=== PATIENT | female | born 1990 | race Caucasian/White ===

== ENCOUNTER 2016-12-27 23:58 | Emergency (ER) | payer MEDICAID ==
[~2016-12-27] VITALS: Ht 160 cm; Wt 56.5 kg
[~2016-12-27 23:58] MED LIST: ACET1TAB40 PO; IBUP-1542 PO; NITR-58 PO
[2016-12-27 23:59] VITALS: Ht 160 cm; Wt 56.5 kg
[2016-12-28] MEDS ORDERED: SOD CHLORIDE 0.9% 1,000 ML IV STA (00:45)
[2016-12-28] MEDS ORDERED: ACETAMINOPHEN 325 MG TAB PO STA (00:45)
[2016-12-28 01:45] LABS: ADD SCAN DIFF NO
--- NOTE | 2016-12-28 01:55 | RADRPT ---
PROCEDURE: US OB. CLINICAL INDICATION: Patency of vaginal hemorrhage. TECHNIQUE: Multiple sonographic images of the pelvis were obtained. The images were reviewed on a PACS workstation. COMPARISON: No prior studies are available for comparison. FINDINGS: There is a single viable intrauterine gestation. Cardiac activity is present with 144 beats per min brandon. There is a cephalic presentation. Measurements were made in order to determine age. The results are as follows: BPD =4.21 cm HC =16.34 cm AC =13.64 cm FL =2.95 cm. Estimated gestational age of approximately 19 weeks and 0 days.. The estimated date of delivery is 05/24/2017. The EFW = 272 g. . The placenta is posterior, grade 0. There is no evidence for an abruption or placenta previa. There is a normal amount of amniotic fluid with an MYESHA = 6.1. There are no adnexal masses.. IMPRESSION: Single live intrauterine gestation of approximately 19 weeks and 0 days. The estimated date of deli very is 05/24/2017. RPTAT: UU Physician Tangela Date Time Electronically viewed and signed by Physician Tangela on 12/28/2016 01:55 RS/
[2016-12-28] MEDS ORDERED: ACET-141 PO (01:56)
[2016-12-28] MEDS ORDERED: morphine 2 MG INJ IV ONE (02:00)
[2016-12-28 02:07] LABS: ALBUMIN 3.6 g/dl (3.3-4.9); POTASSIUM 3.5 mmol/L (3.5-5.1)
[2016-12-28 02:09] LABS: BILIRUBIN,INDIRECT 0.1 mg/dl (0-1.1); BILIRUBIN,TOTAL 0.1 mg/dl (0.2-1.3); CREATININE 0.43 mg/dl (0.44-1.00)
[2016-12-28 02:10] LABS: ALBUMIN/GLOBULIN RATIO 1.2; CALCIUM 8.3 mg/dl (8.4-10.2); TOTAL PROTEIN 6.6 g/dl (6.1-8.1)
[2016-12-28 02:14] LABS: BASOPHIL # 0.1 10^3/ul (0.0-0.1); BASOPHILS % 0.8 % (0.0-2.0); EOSINOPHILS # 0.1 10^3/ul (0.0-0.5); EOSINOPHILS % 0.8 % (0.0-7.0); HEMATOCRIT 29.2 % (37.0-47.0); HEMOGLOBIN 10.2 g/dl (12.0-16.0); LYMPHOCYTES # 2.7 10^3/ul (0.8-2.9); LYMPHOCYTES % 25.8 % (15.0-51.0); MEAN CORPUSCULAR HEMOGLOBIN 32.8 pg (29.0-33.0); MEAN CORPUSCULAR HGB CONC 34.9 g/dl (32.0-37.0); MEAN CORPUSCULAR VOLUME 93.9 fl (82.0-101.0); MEAN PLATELET VOLUME 11.5 fl (7.4-10.4); MONOCYTE # 0.8 10^3/ul (0.3-0.9); NEUTROPHIL # 6.6 10^3/ul (1.6-7.5); NEUTROPHILS % 63.4 % (39.0-77.0); PLATELET COUNT 279 10^3/UL (140-415); RED BLOOD COUNT 3.11 10^6/ul (4.20-5.40); RED CELL DISTRIBUTION WIDTH 12.7 % (11.5-14.5); WHITE BLOOD COUNT 10.4 10^3/ul (4.8-10.8)
[2016-12-28 02:45] LABS: ADD UMIC YES; URINE BILIRUBIN (Dip) NEGATIVE (NEGATIVE); URINE BLOOD (Dip) NEGATIVE (NEGATIVE); URINE COLOR LT. YELLOW (YELLOW); URINE GLUCOSE (Dip) NEGATIVE (NEGATIVE); URINE KETONES (Dip) NEGATIVE (NEGATIVE); URINE LEUKOCYTE ESTERASE (Dip) TRACE (NEGATIVE); URINE NITRITE (Dip) NEGATIVE (NEGATIVE); URINE TOTAL PROTEIN (Dip) NEGATIVE (NEGATIVE); URINE UROBILINOGEN (Dip) 0.2 E.U./dL (0.1-1.0)
[2016-12-28 02:46] VITALS: BP 126/81; PULSE 73; RESP 18
--- NOTE | 2016-12-28 02:47 | ERD ---
ER Documentation Chief Complaint Date/Time DATE: 12/28/16 TIME: 02:43 Chief Complaint 18 wks , abdominal pain, denies bleeding HPI 26-year-old woman complaining of intermittent pelvic cramping occurring every 15 minutes for most of the day today, patient is 18-19 weeks by dates and previously normal ultrasound. Patient denies vaginal bleeding or discharge , no dysuria, no chest pain or shortness of breath, no dizziness or loss of consciousness, no anorexia, no vomiting or diarrhea. Patient does have obstetrics follow-up scheduled. ROS All systems reviewed and are negative except as per history of present illness. Medications Home Meds Active Scripts Acetaminophen* (Acetaminophen*) 500 MG Extra Strength Tablet, 500 MG PO QID Y for PAIN AND/OR INFLAMMATION, #30 TAB Prov:MARCUS BECKMAN MD 12/28/16 Acetaminophen-Codeine* (Acetaminophen-Cod #3*) 300-30 Mg Tab, 1 TAB PO Q4H Y for PAIN, #14 TAB Prov:JESI POLLARD MD 01/25/16 Ibuprofen* (Motrin*) 600 Mg Tab, 600 MG PO Q6, #20 TAB Prov:JESI POLLARD MD 01/25/16 Nitrofurantoin Monohyd Macrocr* (Macrobid*) 100 Mg Capsr, 100 MG PO twice a day for 5 Days, CAP Prov:MICKY SHARP NP 01/10/16 Allergies Allergies: Coded Allergies: No Known Drug Allergies (Verified Allergy, Unknown, 01/09/16) PMhx/Soc None History of Surgery: Yes (OVARIAN CYST REMOVED ) Anesthesia Reaction: No Hx Neurological Disorder: No Hx Respiratory Disorders: No Hx Cardiac Disorders: No Hx Psychiatric Problems: No Hx Miscellaneous Medical Probl: Yes (DEPRESSION, SCIATICA ) Hx Alcohol Use: No Hx Substance Use: No Hx Tobacco Use: No Smoking Status: Never smoker FmHx Family History: No diabetes Physical Exam Vitals Vital Signs Date Time Temp Pulse Resp B/P Pulse Ox O2 Delivery O2 Flow Rate FiO2 12/27/16 23:59 98.9 105 20 123/59 98 Physical Exam GENERAL: Well-developed, well-nourished, well-hydrated, in no apparent distress , looks nontoxic in appearance HEENT: Moist mucous membranes, pink conjunctiva, no cervical spine tenderness or step-off deformities, no goiter, no jaundice or icterus, extraocular movements intact without pain. No submandibular induration, and no pharyngeal erythema NEURO: Alert and oriented 3, cranial nerves II through XII intact bilaterally, pupils equal round reactive to light, no focal deficits or facial asymmetry, sensation intact distally Strength 5/5 in upper and lower extremities bilaterally CARDIAC: Regular rate and rhythm, no murmurs rubs or gallops LUNGS: Clear bilaterally no wheezing crackles or stridor ABDOMEN: Gravid abdomen, soft nontender, no guarding, no rigidity, no rebound, no psoas sign no obturator sign. Normoactive bowel sounds SKIN: Warm and dry to touch, no abrasions, contusions, or hematomas, no lacerations, no ecchymosis, no target lesions, and without ulcers EXTREMITIES: No clubbing cyanosis or edema, calves are bilaterally symmetrical, no Homans sign, no popliteal cord sign. Distal pulses equal and bilateral PSYCH: Normal affect without agitation or irritability Result Diagram: 12/28/16 0140 12/28/16 0140 Results 24 hrs Laboratory Tests Test 12/28/16 01:40 White Blood Count 10.410^3/ul Red Blood Count 3.1110^6/ul Hemoglobin 10.2g/dl Hematocrit 29.2% Mean Corpuscular Volume 93.9fl Mean Corpuscular Hemoglobin 32.8pg Mean Corpuscular Hemoglobin Concent 34.9g/dl Red Cell Distribution Width 12.7% Platelet Count 29115^3/UL Mean Platelet Volume 11.5fl Neutrophils % 63.4% Lymphocytes % 25.8% Monocytes % 8.0% Eosinophils % 0.8% Basophils % 0.8% Nucleated Red Blood Cells % 0.0/100WBC Neutrophils # 6.610^3/ul Lymphocytes # 2.710^3/ul Monocytes # 0.810^3/ul Eosinophils # 0.110^3/ul Basophils # 0.110^3/ul Nucleated Red Blood Cells # 0.010^3/ul Sodium Level 133mmol/L Potassium Level 3.5mmol/L Chloride Level 105mmol/L Carbon Dioxide Level 23mmol/L Anion Gap 9 Blood Urea Nitrogen 7mg/dl Creatinine 0.43mg/dl Glucose Level 85mg/dl Calcium Level 8.3mg/dl Total Bilirubin 0.1mg/dl Direct Bilirubin 0.00mg/dl Indirect Bilirubin 0.1mg/dl Aspartate Amino Transf (AST/SGOT) 13IU/L Alanine Aminotransferase (ALT/SGPT) 15IU/L Alkaline Phosphatase 67IU/L Total Protein 6.6g/dl Albumin 3.6g/dl Globulin 3.00g/dl Albumin/Globulin Ratio 1.20 Current Medications Medications (Trade) Dose Ordered Sig/Mary Route PRN Reason Start Time Stop Time Status Last Admin Dose Admin Sodium Chloride (NS) 1,000 ml @ 1,000 mls/hr Q1H STAT IV 12/28/16 00:45 12/28/16 01:44 DC 12/28/16 01:12 Acetaminophen (Tylenol Tab) 650 mg ONCE STAT PO 12/28/16 00:45 12/28/16 00:46 DC 12/28/16 01:12 Morphine Sulfate (morphine) 2 mg ONCE ONCE IV 12/28/16 02:00 12/28/16 02:01 DC 12/28/16 02:35 Procedures/MDM IV line was established patient was placed on classroom monitor rhythm strip revealed a sinus tachycardia at 110 bpm with upright P and T waves. Patient was afebrile. Urine analysis is pending I will follow-up, if positive I will treat her with oral antibiotics. I administered 1 L normal saline intravenously and acetaminophen 650 mg p.o. with good effect. For later complaints of cramping I administered morphine 2 mg intramuscular injection with good effect. Pelvic obstetric ultrasound revealed a 19 week intrauterine with good heart tones. Please refer to radiologist dictation for full report. CBC and electrolytes were normal, liver function tests normal. Beta-hCG appropriately elevated. Differential diagnoses considered, included but not limited to cervicitis, ectopic , premature rupture of membranes, sepsis, stroke, meningitis, encephalitis, pneumonia, appendicitis, cholecystitis, bowel obstruction, pyelonephritis, nephrolithiasis, cystitis, as well as metabolic, hematologic, and electrolyte abnormalities. As well as abscess, cellulitis, fractures, and dislocations. Patient feels much better at this time, and vital signs are normal, symptoms have improved. I did give strict instructions to return to the ED if symptoms continue or worsen, patient will otherwise follow-up with primary care physician. Patient understood instructions and agreed to plan. Departure Diagnosis: Primary Impression: Threatened miscarriage Additional Impression: Second trimester Condition: Good Patient Instructions: Possible Miscarriage (Threatened ) MARCUS BECKMAN MD Dec 28, 2016 02:47
[2016-12-28 02:56] LABS: BACTERIA,URINE MODERATE; SQUAMOUS EPITHELIAL CELL,UR MODERATE; URINE RBCS 0-2 /HPF (0)
== END 2016-12-28 02:47 | disposition home or self-care (01) ==
LOC: E/R 23:58
DX: O20.0 Threatened abortion (principal); Z3A.19 19 weeks gestation of pregnancy
CPT/HCPCS: 76805; 80053; 81001; 81003; 84702; 85025; 86900; 86901; J2270; J7030; Z7610; 36415; 96374

== ENCOUNTER 2017-01-01 11:55 | Outpatient (CLI) | payer MEDICAID ==
[~2017-01-01] VITALS: Ht 152.4 cm; Wt 54.1 kg
[~2017-01-01 11:55] MED LIST changes: +ACET-141 PO
[2017-01-01 12:26] VITALS: BP 123/68; PULSE 101; RESP 18; Ht 152.4 cm; Wt 54.1 kg
[2017-01-01 14:05] LABS: ADD UMIC NO; URINE BILIRUBIN (Dip) NEGATIVE (NEGATIVE); URINE BLOOD (Dip) NEGATIVE (NEGATIVE); URINE COLOR LT. YELLOW (YELLOW); URINE GLUCOSE (Dip) NEGATIVE (NEGATIVE); URINE KETONES (Dip) NEGATIVE (NEGATIVE); URINE LEUKOCYTE ESTERASE (Dip) NEGATIVE (NEGATIVE); URINE NITRITE (Dip) NEGATIVE (NEGATIVE); URINE TOTAL PROTEIN (Dip) NEGATIVE (NEGATIVE); URINE UROBILINOGEN (Dip) 0.2 E.U./dL (0.1-1.0)
--- NOTE | 2017-01-01 14:07 | RADRPT ---
PROCEDURE: Limited obstetric ultrasound CLINICAL INDICATION: Pain , labor TECHNIQUE: Multiple transverse and longitudinal grayscale images of the pelvis were obtained kenyon sabdominally and transvaginally.. COMPARISON: 12/28/2016 FINDINGS: The cervix is closed with a length of 3.6 cm. There is a Nabothian cyst in the cervix. There is a single viable intrauterine gestation. Cardiac activity is present with 140 beats per min brandon. There is a vertex presentation. The placenta is fundal. There is no evidence for an abruption or placenta previa. RPTAT: AA IMPRESSION: Cervix length measures 3.6 cm. .Mati Monte MD, MD Date Time Electronically viewed and signed by .Mati Monte MD, on 01/01/2017 14:06 .S/
[2017-01-01] MEDS: DEXTROSE 5%-LR 1,000 ML IV SCH ×2 (14:27→16:17)
[2017-01-01] MEDS ORDERED: ACETAMINOPHEN 325 MG TAB PO ONE (17:45)
--- NOTE | 2017-01-01 18:06 | QN ---
Documentation Comment 26 y/o at 20= weeks with c/o sore throat and cough. Patient feels contractions but denies leakage of fluid or vaginal bleeding. Afebrile VSS Lungs CTA Abdomen soft NT Cervix closed Strip Appropriate for GA Cervical length normal D/C home Rx amoxicillin 500 mg PO TID x10 days. ERIN ENG MD Jan 01, 2017 18:06
--- NOTE | 2017-01-01 18:19 | TRIAGE ---
OB Triage Datetime Report Generated by CPN: 01/01/2017 18:19 Datetime: 01/01/2017 17:59 Labor Evaluation Frequency: 3-5 Monitor Mode: External Duration (sec)2399: 40-60 Quality: Mild Pattern: Normal: <= 5 Contractions in 10 Minutes Resting Tone [place]: Relaxed Pain Assessment Pain Scale: 2 Pain Presence: Intermittent Pain Type: Cramping Pain Location: Abdomen Pain Relief Measures: Comfort Measures Datetime: 01/01/2017 17:56 Vaginal Exam Dilatation (cms): 0.0 Exam By: DR DELSHAD Datetime: 01/01/2017 17:00 Labor Evaluation Frequency: 3-4 Monitor Mode: External Duration (sec)2399: 50-80 Quality: Mild Pattern: Normal: <= 5 Contractions in 10 Minutes Resting Tone [place]: Relaxed Pain Assessment Pain Scale: 4 Pain Presence: Intermittent Pain Type: Cramping Pain Location: Abdomen Pain Relief Measures: Comfort Measures Datetime: 01/01/2017 15:49 Labor Evaluation Frequency: 3-5 Monitor Mode: External Duration (sec)2399: 50-80 Quality: Mild Pattern: Normal: <= 5 Contractions in 10 Minutes Resting Tone [place]: Relaxed Pain Assessment Pain Scale: 5 Pain Presence: Intermittent Pain Type: Cramping Pain Location: Abdomen Pain Relief Measures: Comfort Measures Datetime: 01/01/2017 14:59 Labor Evaluation Frequency: 3-5 Monitor Mode: External Duration (sec)2399: 50-70 Resting Tone [place]: Relaxed Comments: OFF DUE TO GESTATIONAL AGE, Pain Assessment Pain Scale: 2 Pain Presence: Intermittent Pain Type: Cramping Pain Goal: 3 Pain Relief Measures: Comfort Measures Datetime: 01/01/2017 13:40 Labor Evaluation Frequency: 3 Monitor Mode: External Duration (sec)2399: 60 Quality: Mild Pattern: Normal: <= 5 Contractions in 10 Minutes Resting Tone [place]: Relaxed Contraction Comments: pt advised to push ming button when feeling contractions, noted every 4 min apart Heart Rate FHR Baseline Rate: 140 Comments: unable to monitor contineously, spot check at 140 with audible movements Datetime: 01/01/2017 12:10 Stage of : OB Triage Time of Arrival: 01/01/2017 12:10 EGA: 20.2 Arrived By: Ambulatory Arrived From: Office Chief Complaint: CRAMPING Movement: Present Contractions: Irregular Contractions: 3-5 Rupture of Membranes: Denies Vaginal Bleeding: None Vaginal Discharge: Denies Recent Sexual Intercouse: Denies Abdominal Trauma: Not Applicable Patient Complaints: Contractions; Cramping Initial Plan: U/S, HYDRATION, Maternal Assessment Level of Consciousness: Fully Conscious DTR's/Clonus: DTRs 2+; No Clonus Headache: Denies Blurred Vision: No Respiratory Effort: Unlabored; Regular Rhythm; Equal Expansion Breath Sounds, Left: Clear and Equal Breath Sounds, Right: Clear and Equal Nausea/Vomiting: Denies RUQ Epigastric Pain: Denies Lower Extremities Edema: None Degree: None Upper Extremities Edema: None Degree: None Facial Edema: None Temperature Route: Axillary Fall Risk Assessment History of Falling: (0) No Secondary Diagnosis: (0) No Ambulatory Aid: (0) Bedrest/Nurse Assist IV Therapy: (0) No Gait: (0) Normal/Bedrest/Immobile Mental Status: (0) Oriented to Own Ability Fall Score: 0 Fall Risk Score Definition: No Risk: No action required Monitor Mode: External Heart Rate FHR Baseline Rate: 140 Monitor Mode: External US Pain Presence: Constant Pain Type: Sharp Pain Location: lower back Datetime: 01/01/2017 12:03 Time of Arrival: 01/01/2017 12:03 Chief Complaint: tightness of chest, cough and earache, contractions every 20-30 min since last Movement: Present Rupture of Membranes: Denies Vaginal Bleeding: None Vaginal Discharge: Denies Abdominal Trauma: Not Applicable Patient Complaints: Cough; Shortness of Breath; Other Initial Plan: efm, observation
== END 2017-01-01 18:20 | disposition home or self-care (01) ==
LOC: OBT 11:55 → L-D 11:58 → OBT 18:20
PROVIDERS: ATTEND Obstetrics & Gynecology
DX: O26.892 Other specified pregnancy related conditions, second trimester (principal); R05 Cough; J02.9 Acute pharyngitis, unspecified; Z3A.20 20 weeks gestation of pregnancy
CPT/HCPCS: 76817; 81003; 87086; 96360; J7121; Z7500; Z7610; G0463

== ENCOUNTER 2017-02-11 13:18 | Outpatient (CLI) | payer MEDICAID ==
[~2017-02-11] VITALS: Ht 152.4 cm; Wt 57.7 kg
[~2017-02-11 13:18] MED LIST changes: -ACET1TAB40 PO; -IBUP-1542 PO; -NITR-58 PO
[2017-02-11] MEDS ORDERED: PRENAT PO (13:44)
[2017-02-11 13:45] VITALS: Ht 152.4 cm; Wt 57.7 kg
[2017-02-11 13:46] VITALS: BP 109/56; PULSE 76; RESP 18
--- NOTE | 2017-02-11 14:11 | RADRPT ---
PROCEDURE: Limited obstetric ultrasound CLINICAL INDICATION: Pain , labor TECHNIQUE: Multiple transverse and longitudinal grayscale images of the pelvis were obtained kenyon sabdominally and transvaginally.. COMPARISON: 01/01/2017 FINDINGS: The cervix is closed with a length of 4.0 cm. There is a Nabothian cysts in the cervix. There is a single viable intrauterine gestation. Cardiac activity is present with 148 beats per min brandon. There is a breech presentation. The placenta is posterior. There is no evidence for an abruption or placenta previa. RPTAT: AA IMPRESSION: Cervix length measures 4.0 cm. .Mati Monte MD, MD Date Time Electronically viewed and signed by .Mati Monte MD, on 02/11/2017 14:11 .S/
--- NOTE | 2017-02-11 14:55 | TRIAGE ---
OB Triage Datetime Report Generated by CPN: 02/11/2017 14:55 Datetime: 02/11/2017 14:30 Stage of : OB Triage Maternal Assessment Level of Consciousness: Fully Conscious Labor Evaluation Frequency: NONE Monitor Mode: External Resting Tone [place]: Relaxed Heart Rate FHR Baseline Rate: 135 Monitor Mode: External US Variability: Moderate 6-25 bpm Accelerations: 10X10 Decelerations: Variable (Annotations: AGA) Pain Assessment Pain Scale: 6 Pain Presence: Constant Pain Type: Ache Pain Location: Back Pain Goal: 4 Pain Relief Measures: Comfort Measures Vaginal Exam Membrane Status: Intact Vaginal Bleeding: None Datetime: 02/11/2017 13:42 Assessment Type: Triage Maternal Assessment Level of Consciousness: Fully Conscious DTR's/Clonus: DTRs 2+; No Clonus Headache: Denies Blurred Vision: No Respiratory Effort: Unlabored; Regular Rhythm; Equal Expansion Breath Sounds, Left: Clear and Equal Breath Sounds, Right: Clear and Equal Nausea/Vomiting: Denies RUQ Epigastric Pain: Denies Lower Extremities Edema: None Degree: None Upper Extremities Edema: None Degree: None Facial Edema: None Fall Risk Assessment History of Falling: (0) No Secondary Diagnosis: (0) No Ambulatory Aid: (0) Bedrest/Nurse Assist IV Therapy: (0) No Gait: (0) Normal/Bedrest/Immobile Mental Status: (0) Oriented to Own Ability Fall Score: 0 Fall Risk Score Definition: No Risk: No action required Datetime: 02/11/2017 13:40 Time of Arrival: 02/11/2017 13:10 EGA: 26.1 Arrived By: Ambulatory Arrived From: Dr. Li Chief Complaint: PT SENT FROM CLINIC FOR C/O CONSTANT LOWER BACK PAIN S/P FALL ON 02/09 Movement: Present Contractions: Denies/Absent Rupture of Membranes: Denies Vaginal Bleeding: None Vaginal Discharge: Denies Recent Sexual Intercouse: Denies Abdominal Trauma: Fall Patient Complaints: Back Pain Time Provider Notified: 02/11/2017 13:30 Provider Notified: VELASQUEZ Initial Plan: EFM, CVL Datetime: 02/11/2017 13:36 Monitor Mode: External Monitor Mode: External US Datetime: 01/01/2017 12:10 EGA: 20.2 Chief Complaint: CRAMPING, FLU SYMPTOMS Time Provider Notified: 01/01/2017 12:13 Provider Notified: DR ENG Fall Score: 0 Fall Risk Score Definition: No Risk: No action required
--- NOTE | 2017-02-11 15:00 | QN ---
Documentation Comment 26 y/o RADHA 05/19/17 with c/o low back pain. Afebrile VSS Abdomen soft NST no sign of contractions OB ultrasound Cervical length normal No sign of labor D/C home. ERIN ENG MD February 11, 2017 15:00
== END 2017-02-11 15:07 | disposition home or self-care (01) ==
LOC: OBT 13:18 → L-D 13:19 → OBT 15:07
PROVIDERS: ATTEND Obstetrics & Gynecology
DX: O26.892 Other specified pregnancy related conditions, second trimester (principal); M54.5 Low back pain; Z3A.26 26 weeks gestation of pregnancy
CPT/HCPCS: 76817; G0463

== ENCOUNTER 2017-03-20 14:59 | Outpatient (CLI) | payer MEDICAID ==
[~2017-03-20] VITALS: Ht 152.4 cm; Wt 61.0 kg
[~2017-03-20 14:59] MED LIST changes: +PRENAT PO
[2017-03-20 15:12] VITALS: Ht 152.4 cm; Wt 61.0 kg
[2017-03-20 15:13] VITALS: BP 110/54; PULSE 86; RESP 16
[2017-03-20] MEDS: LACTATED RINGER'S 1,000 ML IV SCH ×2 (15:31→16:42)
[2017-03-20 15:45] LABS: ADD SCAN DIFF NO
[2017-03-20 15:48] LABS: BASOPHILS % 0.5 % (0.0-2.0); EOSINOPHILS % 0.3 % (0.0-7.0); HEMOGLOBIN 9.2 g/dl (12.0-16.0); LYMPHOCYTES # 1.6 10^3/ul (0.8-2.9); LYMPHOCYTES % 17.9 % (15.0-51.0); MEAN CORPUSCULAR HEMOGLOBIN 30.7 pg (29.0-33.0); MEAN CORPUSCULAR HGB CONC 34.1 g/dl (32.0-37.0); MEAN PLATELET VOLUME 11.5 fl (7.4-10.4); MONOCYTE # 0.6 10^3/ul (0.3-0.9); MONOCYTES % 6.8 % (0.0-11.0); NEUTROPHIL # 6.4 10^3/ul (1.6-7.5); NEUTROPHILS % 72.6 % (39.0-77.0); PLATELET COUNT 240 10^3/UL (140-415); RED CELL DISTRIBUTION WIDTH 12.4 % (11.5-14.5); WHITE BLOOD COUNT 8.8 10^3/ul (4.8-10.8)
[2017-03-20 15:52] LABS: ADD UMIC YES; UR ASCORBIC ACID NEGATIVE (NEGATIVE); UR BACTERIA FEW /HPF (NONE SEEN); UR BILIRUBIN (Dip) NEGATIVE (NEGATIVE); UR BLOOD (Dip) NEGATIVE (NEGATIVE); UR CLARITY SLIGHTLY CLOUDY (CLEAR); UR COLOR YELLOW (YELLOW); UR GLUCOSE (Dip) NEGATIVE (NEGATIVE); UR KETONES (Dip) NEGATIVE (NEGATIVE); UR LEUKOCYTE ESTERASE (Dip) TRACE Leu/ul (NEGATIVE); UR NITRITE (Dip) NEGATIVE (NEGATIVE); UR RBC 0 /HPF (0-5); UR SPECIFIC GRAVITY (Dip) 1.012 (1.003-1.030); UR SQUAMOUS EPITHELIAL CELL FEW /HPF (FEW); UR TOTAL PROTEIN (Dip) NEGATIVE (NEGATIVE); UR UROBILINOGEN (Dip) NEGATIVE (NEGATIVE)
--- NOTE | 2017-03-20 15:57 | RADRPT ---
PROCEDURE: OB ultrasound CLINICAL INDICATION: Contractions TECHNIQUE: Multiple transverse and longitudinal OB images of the pelvis were obtained. The images were reviewed on a high-resolution PACS workstation. COMPARISON: None FINDINGS: A single live intrauterine is seen. The presentation is vertex. The placenta is grade 1 a [address] posterior in location. The cervix is closed. No evidence of funneling is seen. The cervix length is 4.8 cm. The heart rate is 129 beats per minute. IMPRESSION: Cervix length = 4.8 cm. RPTAT: HPNM Physician Tanya Date Time Electronically viewed and signed by Physician Tanya on 03/20/2017 15:57 /
[2017-03-20 16:05] LABS: ALBUMIN 4.3 g/dl (3.3-4.9); ALBUMIN/GLOBULIN RATIO 1.59; BILIRUBIN,INDIRECT 0.2 mg/dl (0-1.1); BILIRUBIN,TOTAL 0.2 mg/dl (0.2-1.3); CALCIUM 8.6 mg/dl (8.4-10.2); CREATININE 0.49 mg/dl (0.44-1.00); POTASSIUM 3.6 mmol/L (3.5-5.1)
[2017-03-20] MEDS ORDERED: TERBUTALINE 1 ML ONE (21:39)
[2017-03-20] MEDS ORDERED: TERBUTALINE 1 MG/ML INJ SC ONE (21:40)
--- NOTE | 2017-03-21 01:27 | TRIAGE ---
OB Triage Datetime Report Generated by CPN: 03/21/2017 01:26 Datetime: 03/20/2017 23:54 Labor Evaluation Frequency: NONE Monitor Mode: External Pattern: Normal: <= 5 Contractions in 10 Minutes Resting Tone [place]: Relaxed Heart Rate FHR Baseline Rate: 125 Monitor Mode: External US Variability: Moderate 6-25 bpm Accelerations: 15X15 Decelerations: None Category: Category I Datetime: 03/20/2017 23:00 Labor Evaluation Frequency: X1 Monitor Mode: External Duration (sec)2399: 40 Quality: Mild Pattern: Normal: <= 5 Contractions in 10 Minutes Resting Tone [place]: Relaxed Heart Rate FHR Baseline Rate: 130 Monitor Mode: External US Variability: Moderate 6-25 bpm Accelerations: 15X15 Decelerations: None Category: Category I Datetime: 03/20/2017 22:00 Labor Evaluation Frequency: 4-9 Monitor Mode: External Duration (sec)2399: 40-70 Quality: Mild Pattern: Normal: <= 5 Contractions in 10 Minutes Resting Tone [place]: Relaxed Datetime: 03/20/2017 21:19 Vaginal Exam Dilatation (cms): 0.0 Datetime: 03/20/2017 21:00 Labor Evaluation Frequency: 4-5 Monitor Mode: External Duration (sec)2399: 60-70 Quality: Mild Pattern: Normal: <= 5 Contractions in 10 Minutes Resting Tone [place]: Relaxed Heart Rate FHR Baseline Rate: 125 Monitor Mode: External US Variability: Moderate 6-25 bpm Accelerations: 15X15 Decelerations: None Category: Category I Datetime: 03/20/2017 20:00 Stage of : OB Triage Assessment Type: Triage Labor Evaluation Frequency: 3-5 Monitor Mode: External Duration (sec)2399: 50-70 Quality: Mild Pattern: Normal: <= 5 Contractions in 10 Minutes Heart Rate FHR Baseline Rate: 120 Monitor Mode: External US Variability: Moderate 6-25 bpm Accelerations: 15X15 Decelerations: None Category: Category I Datetime: 03/20/2017 19:14 Stage of : OB Triage Assessment Type: Triage Maternal Assessment Level of Consciousness: Fully Conscious DTR's/Clonus: DTRs 2+; No Clonus Headache: Denies Blurred Vision: No Respiratory Effort: Unlabored; Regular Rhythm; Equal Expansion Breath Sounds, Left: Clear and Equal Breath Sounds, Right: Clear and Equal Nausea/Vomiting: Denies RUQ Epigastric Pain: Denies Lower Extremities Edema: None Degree: None Upper Extremities Edema: None Degree: None Facial Edema: None Fall Risk Assessment History of Falling: (0) No Secondary Diagnosis: (0) No Ambulatory Aid: (0) Bedrest/Nurse Assist IV Therapy: (0) No Gait: (0) Normal/Bedrest/Immobile Mental Status: (0) Oriented to Own Ability Fall Score: 0 Fall Risk Score Definition: No Risk: No action required Pain Assessment Pain Scale: 7 Pain Presence: Intermittent Datetime: 03/20/2017 18:59 Labor Evaluation Frequency: 4-9 Monitor Mode: External Duration (sec)2399: 60-80 Quality: Mild Pattern: Normal: <= 5 Contractions in 10 Minutes Resting Tone [place]: Relaxed Heart Rate FHR Baseline Rate: 125 Monitor Mode: External US Variability: Moderate 6-25 bpm Accelerations: 15X15 Decelerations: None Category: Category I Pain Assessment Pain Scale: 8 Pain Presence: Intermittent Pain Type: Contraction Pain Location: Abdomen; Back Pain Goal: 3 Datetime: 03/20/2017 18:19 Vaginal Exam Dilatation (cms): 0.0 Exam By: DR.DELSHAD Datetime: 03/20/2017 18:00 Labor Evaluation Frequency: 4-7 Monitor Mode: External Duration (sec)2399: 40-80 Quality: Mild Pattern: Normal: <= 5 Contractions in 10 Minutes Resting Tone [place]: Relaxed Heart Rate FHR Baseline Rate: 125 Monitor Mode: External US Variability: Moderate 6-25 bpm Accelerations: 15X15 Decelerations: None Category: Category I Pain Assessment Pain Scale: 8 Pain Presence: Intermittent Pain Type: Contraction Pain Location: Abdomen; Back Pain Goal: 3 Datetime: 03/20/2017 17:00 Labor Evaluation Frequency: 4-12 Monitor Mode: External Duration (sec)2399: 50-60 Quality: Mild Pattern: Normal: <= 5 Contractions in 10 Minutes Resting Tone [place]: Relaxed Heart Rate FHR Baseline Rate: 125 Monitor Mode: External US Variability: Moderate 6-25 bpm Accelerations: 15X15 Decelerations: None Category: Category I Pain Assessment Pain Scale: 7 Pain Presence: Intermittent Pain Type: Contraction Pain Location: Abdomen Datetime: 03/20/2017 15:59 Labor Evaluation Frequency: x2 Monitor Mode: External Duration (sec)2399: 50-60 Quality: Mild Pattern: Normal: <= 5 Contractions in 10 Minutes Resting Tone [place]: Relaxed Heart Rate FHR Baseline Rate: 125 Monitor Mode: External US Variability: Moderate 6-25 bpm Accelerations: 15X15 Decelerations: None Category: Category I Pain Assessment Pain Scale: 7 Pain Presence: Intermittent Pain Type: Contraction Pain Location: Abdomen Pain Goal: 3 Datetime: 03/20/2017 15:14 Time of Arrival: 03/20/2017 14:50 EGA: 31.3 Arrived By: Ambulatory Arrived From: Home Chief Complaint: PT. came to hospital c/o uc since 0800am today, [id number] apart, also nausea and vomiting, 5 times today Movement: Present Contractions: Irregular Rupture of Membranes: Denies Vaginal Bleeding: None Vaginal Discharge: Denies Recent Sexual Intercouse: Denies Abdominal Trauma: Not Applicable Patient Complaints: Contractions; Nausea; Vomiting Initial Plan: iv hydration, u/s for cxl, ua, cbc, cmp, amylase, lipase, sq terbulataline Datetime: 02/11/2017 13:42 Fall Score: 0 Fall Risk Score Definition: No Risk: No action required Datetime: 02/11/2017 13:40 EGA: 26.1 Datetime: 01/01/2017 12:10 EGA: 20.2 Fall Score: 0 Fall Risk Score Definition: No Risk: No action required
== END 2017-03-21 00:15 | disposition home or self-care (01) ==
LOC: OBT 14:59 → L-D 15:00 → OBT 03-21 00:15
PROVIDERS: ATTEND Obstetrics & Gynecology
DX: O62.9 Abnormality of forces of labor, unspecified (principal); Z3A.31 31 weeks gestation of pregnancy
CPT/HCPCS: 36415; 76817; 80053; 81001; 82150; 83690; 85025; 96360; J3105; J7120; Z7500; G0463

== ENCOUNTER 2017-03-27 15:20 | Outpatient (CLI) | payer MEDICAID ==
[~2017-03-27] VITALS: Ht 152.4 cm; Wt 61.8 kg
[~2017-03-27 15:20] MED LIST changes: -ACET-141 PO
[2017-03-27 16:01] VITALS: Ht 152.4 cm; Wt 61.8 kg
[2017-03-27 16:02] VITALS: BP 132/85; PULSE 110; RESP 18
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
[2017-03-27] MEDS ORDERED: HYDR50CA PO (22:20)
--- NOTE | 2017-03-27 23:02 | TRIAGE ---
OB Triage Datetime Report Generated by CPN: 03/27/2017 23:02 Datetime: 03/27/2017 22:40 Stage of : OB Triage Datetime: 03/27/2017 22:35 Stage of : OB Triage Datetime: 03/27/2017 22:10 Stage of : OB Triage Datetime: 03/27/2017 21:45 Stage of : OB Triage Datetime: 03/27/2017 21:40 Stage of : OB Triage Datetime: 03/27/2017 21:09 Stage of : OB Triage Datetime: 03/27/2017 20:55 Stage of : OB Triage Datetime: 03/27/2017 20:35 Stage of : OB Triage Datetime: 03/27/2017 20:05 Stage of : OB Triage Datetime: 03/27/2017 19:55 Stage of : OB Triage Datetime: 03/27/2017 19:50 Stage of : OB Triage Datetime: 03/27/2017 19:40 Stage of : OB Triage Datetime: 03/27/2017 17:24 Comments: NST completed. FHR and TOCO monitor taken off pt. Datetime: 03/27/2017 17:20 Labor Evaluation Monitor Mode: External Resting Tone Wood[place]: Relaxed Contraction Comments: Uterine picking up movement from pt switching side to side. Pt denies feelin g any pain, pressure, or contractions Heart Rate FHR Baseline Rate: 135 Monitor Mode: External US FHR Baseline Changes: No Baseline Change Variability: Moderate 6-25 bpm Accelerations: 15X15 Decelerations: None Category: Category I Pain Assessment Pain Presence: None/Denies Datetime: 03/27/2017 16:30 Labor Evaluation Monitor Mode: External Resting Tone Woodlyn: Relaxed Heart Rate FHR Baseline Rate: 125 Monitor Mode: External US FHR Baseline Changes: No Baseline Change Variability: Moderate 6-25 bpm Accelerations: 15X15 Decelerations: None Category: Category I Pain Assessment Pain Presence: None/Denies Datetime: 03/27/2017 15:53 Time of Arrival: 03/27/2017 15:20 EGA: 32.3 Arrived By: Ambulatory Arrived From: Office Chief Complaint: Anxiety Movement: Present Contractions: Denies/Absent Rupture of Membranes: Denies Vaginal Bleeding: None Vaginal Discharge: Denies Recent Sexual Intercouse: Denies Abdominal Trauma: Not Applicable Patient Complaints: Other Time Provider Notified: 03/27/2017 16:15 Provider Notified: Delshad Initial Plan: Social Work Consult, NST, VS, Telemed Psychiatry Consult Datetime: 03/27/2017 15:50 Assessment Type: Triage Maternal Assessment Level of Consciousness: Fully Conscious DTR's/Clonus: DTRs 2+; No Clonus Headache: Denies Blurred Vision: No Respiratory Effort: Unlabored; Regular Rhythm; Equal Expansion Breath Sounds, Left: Clear and Equal Breath Sounds, Right: Clear and Equal Nausea/Vomiting: Denies RUQ Epigastric Pain: Denies Lower Extremities Edema: None Degree: None Upper Extremities Edema: None Degree: None Facial Edema: None Fall Risk Assessment History of Falling: (0) No Secondary Diagnosis: (0) No Ambulatory Aid: (0) Bedrest/Nurse Assist IV Therapy: (0) No Gait: (0) Normal/Bedrest/Immobile Mental Status: (0) Oriented to Own Ability Fall Score: 0 Fall Risk Score Definition: No Risk: No action required Datetime: 03/27/2017 15:48 Pain Assessment Pain Presence: None/Denies Datetime: 03/27/2017 15:35 Stage of : OB Triage Datetime: 03/20/2017 23:50 Pain Assessment Pain Presence: None/Denies Datetime: 03/20/2017 23:48 Nausea/Vomiting: Denies Datetime: 03/20/2017 19:14 Fall Score: 0 Fall Risk Score Definition: No Risk: No action required Datetime: 03/20/2017 15:14 EGA: 31.3 Datetime: 02/11/2017 13:42 Fall Score: 0 Fall Risk Score Definition: No Risk: No action required Datetime: 02/11/2017 13:40 EGA: 26.1 Datetime: 01/01/2017 12:10 EGA: 20.2 Fall Score: 0 Fall Risk Score Definition: No Risk: No action required
== END 2017-03-27 22:45 | disposition home or self-care (01) ==
LOC: OBT 15:20 → L-D 15:32 → OBT 22:45
PROVIDERS: ATTEND Obstetrics & Gynecology
DX: O99.343 Other mental disorders complicating pregnancy, third trimester (principal); Z3A.32 32 weeks gestation of pregnancy; F41.0 Panic disorder [episodic paroxysmal anxiety]

== ENCOUNTER 2017-04-25 02:13 | Outpatient (CLI) | payer MEDICAID ==
[~2017-04-25] VITALS: Ht 152.4 cm; Wt 62.3 kg
[~2017-04-25 02:13] MED LIST changes: +HYDR50CA PO
[2017-04-25 03:32] VITALS: BP 112/65; PULSE 82; RESP 18
[2017-04-25] MEDS ORDERED: TERBUTALINE 1 MG/ML INJ SC ONE (04:30)
[2017-04-25] MEDS ORDERED: LACTATED RINGER'S 1,000 ML IV ONE (04:30)
[2017-04-25 04:33] LABS: ADD UMIC YES; UR ASCORBIC ACID NEGATIVE (NEGATIVE); UR BACTERIA FEW /HPF (NONE SEEN); UR BILIRUBIN (Dip) NEGATIVE (NEGATIVE); UR BLOOD (Dip) NEGATIVE (NEGATIVE); UR CLARITY CLEAR (CLEAR); UR COLOR YELLOW (YELLOW); UR GLUCOSE (Dip) NEGATIVE (NEGATIVE); UR KETONES (Dip) NEGATIVE (NEGATIVE); UR LEUKOCYTE ESTERASE (Dip) 1+ Leu/ul (NEGATIVE); UR MUCUS FEW /HPF (NONE SEEN); UR NITRITE (Dip) NEGATIVE (NEGATIVE); UR RBC 0 /HPF (0-5); UR SQUAMOUS EPITHELIAL CELL FEW /HPF (FEW); UR TOTAL PROTEIN (Dip) NEGATIVE (NEGATIVE); UR UROBILINOGEN (Dip) 1+ mg/dL (NEGATIVE)
--- NOTE | 2017-04-25 04:52 | RADRPT ---
PROCEDURE: Biophysical profile. CLINICAL INDICATION: Pelvic pain. TECHNIQUE: Multiple sonographic images of the pelvis were obtained with transabdominal technique. COMPARISON: 03/20/2017. FINDINGS: There is a single living intrauterine gestation with the fetus in a vertex position. The placenta i s posterior in location, grade II. heart tones of 118 beats per minute are identified. There is normal amniotic fluid volume with an MYESHA of 18.2 cm. breathing movements = 2 Gross body movements = 2 tone = 2 Qualitative AFV = 2 IMPRESSION: Biophysical profile 8 out of 8. .Lambert Harrison MD, Date Time Electronically viewed and signed by .Lambert Harrison MD, on 04/25/2017 04:51 .T/
[2017-04-25] MEDS ORDERED: BUTORPHANOL 2 MG INJ IV ONE (05:30)
[2017-04-25] MEDS: LACTATED RINGER'S 1,000 ML IV SCH ×2 (06:31→12:25)
[2017-04-25] MEDS ORDERED: BUTORPHANOL 2 MG INJ IV STA (12:19)
[2017-04-25] MEDS ORDERED: BUTORPHANOL 2 MG INJ IV PRN (14:30)
--- NOTE | 2017-04-25 19:02 | PN ---
Triage Information Date/Time Weeks of Gestation 36 weeks : 2 Para: 1 Diabetes: none Hypertention: none Additional information c/o contractions. Denies leakage of fluid or vaginal bleeding. Patient reports good movement. Objective Vital Signs Date Time Temp Pulse Resp B/P Pulse Ox O2 Delivery O2 Flow Rate FiO2 04/25/17 03:32 98.0 82 18 112/65 Room Air Intake and Output 04/24/17 04/24/17 04/25/17 15:00 23:00 07:00 Intake Total 1000 ml Balance 1000 ml Heart Rate: 120's Heart Rate Comments Category I Contractions: < 5 Minutes Apart Exam Cervix i s closed and there has been no cervical change. Results/Medications Results 24 hrs Laboratory Tests Test 04/25/17 02:05 Urine Color YELLOW Urine Clarity CLEAR Urine pH 6.0 Urine Specific [place] 1.020 Urine Ketones NEGATIVE Urine Nitrite NEGATIVE Urine Bilirubin NEGATIVE Urine Urobilinogen 1+ H Urine Leukocyte Esterase 1+ H Urine Microscopic RBC 0 Urine Microscopic WBC 3 Urine Squamous Epithelial Cells FEW Urine Calcium Oxalate Crystals FEW A Urine Bacteria FEW A Urine Mucus FEW A Urine Hemoglobin NEGATIVE Urine Glucose NEGATIVE Urine Total Protein NEGATIVE Medications Current Medications Lactated Ringer's (Lr) 1,000 ml @ 150 mls/hr Q6H40M IV Last administered on 12:25; Admin Dose 150 MLS/HR; Start 04/25/17 at 05:30 Butorphanol Tartrate (Stadol) 1 mg Q2H PRN IV PAIN Last administered on 15:49; Admin Dose 1 MG; Start 04/25/17 at 14:30 Assessment/Plan Patient is not in labor. D/C home. Labor precautions. kick count. ERIN ENG MD Apr 25, 2017 19:01
--- NOTE | 2017-04-25 19:22 | TRIAGE ---
OB Triage Datetime Report Generated by CPN: 04/25/2017 19:22 Datetime: 04/25/2017 18:57 Labor Evaluation Frequency: 2-7 Monitor Mode: External Duration (sec)2399: 50-90 Quality: Mild Pattern: Normal: <= 5 Contractions in 10 Minutes Resting Tone Hagan: Relaxed Heart Rate FHR Baseline Rate: 120 Monitor Mode: External US FHR Baseline Changes: No Baseline Change Variability: Moderate 6-25 bpm Accelerations: 15X15 Decelerations: Variable Pain Assessment Pain Scale: 6 Pain Presence: Intermittent Pain Type: Contraction Pain Location: Abdomen; Back Datetime: 04/25/2017 18:49 Vaginal Exam Dilatation (cms): 0.0 Exam By: DR. DELSHAD Datetime: 04/25/2017 18:01 Labor Evaluation Frequency: 1-10 Monitor Mode: External Duration (sec)2399: 50-80 Quality: Mild Pattern: Normal: <= 5 Contractions in 10 Minutes Resting Tone Hagan: Relaxed Heart Rate FHR Baseline Rate: 115 Monitor Mode: External US FHR Baseline Changes: No Baseline Change Variability: Moderate 6-25 bpm Accelerations: None Decelerations: Variable Comments: Vx1 Datetime: 04/25/2017 17:50 Vaginal Exam Dilatation (cms): 0.0 Effacement (%): 0 Station: -3 Exam By: CK Datetime: 04/25/2017 17:01 Labor Evaluation Frequency: 2-10 Monitor Mode: External Duration (sec)2399: 50-100 Quality: Mild Pattern: Normal: <= 5 Contractions in 10 Minutes Resting Tone Hagan: Relaxed Heart Rate FHR Baseline Rate: 115 FHR Baseline Changes: No Baseline Change Variability: Moderate 6-25 bpm Accelerations: 15X15 Decelerations: Variable Comments: Vx1 Pain Assessment Pain Scale: 7 Pain Presence: Intermittent Pain Type: Contraction Pain Location: Abdomen; Back Datetime: 04/25/2017 16:33 Pain Assessment Pain Scale: 6 Pain Presence: Intermittent Pain Type: Contraction; Pressure Pain Location: Abdomen; Back Datetime: 04/25/2017 16:02 Labor Evaluation Frequency: 1-7 Monitor Mode: External Duration (sec)2399: 40-100 Quality: Mild Pattern: Normal: <= 5 Contractions in 10 Minutes Resting Tone Hagan: Relaxed Heart Rate FHR Baseline Rate: 125 FHR Baseline Changes: No Baseline Change Variability: Moderate 6-25 bpm Accelerations: 15X15 Decelerations: None Datetime: 04/25/2017 15:37 Monitor Mode: External US Pain Assessment Pain Scale: 8 Pain Presence: Intermittent Pain Type: Contraction Pain Location: Abdomen; Back Pain Assessment Comments: PT REQUESTS PAIN MEDICATION Datetime: 04/25/2017 15:36 Contraction Comments: PT PRESSING ON ABDOMEN, MASSAGING IT. Datetime: 04/25/2017 15:01 Maternal Assessment Level of Consciousness: Fully Conscious Headache: Denies Blurred Vision: No Nausea/Vomiting: Denies RUQ Epigastric Pain: Denies Facial Edema: None Labor Evaluation Frequency: 1-11 Monitor Mode: External Duration (sec)2399: 40-80 Quality: Mild Pattern: Normal: <= 5 Contractions in 10 Minutes Resting Tone Hagan: Relaxed Heart Rate FHR Baseline Rate: 115 Monitor Mode: External US FHR Baseline Changes: No Baseline Change Variability: Moderate 6-25 bpm Accelerations: 15X15 Pain Assessment Pain Scale: 6 Pain Presence: Intermittent Pain Type: Contraction Pain Location: Abdomen; Back Datetime: 04/25/2017 14:09 Monitor Mode: External US Datetime: 04/25/2017 14:06 Monitor Mode: External US Datetime: 04/25/2017 14:00 Labor Evaluation Frequency: 4-10 Monitor Mode: External Duration (sec)2399: 50-90 Quality: Mild Pattern: Normal: <= 5 Contractions in 10 Minutes Resting Tone Hagan: Relaxed Heart Rate FHR Baseline Rate: 115 Monitor Mode: External US FHR Baseline Changes: No Baseline Change Variability: Moderate 6-25 bpm Accelerations: 15X15 Decelerations: None Pain Assessment Pain Scale: 6 Pain Presence: Intermittent Pain Type: Contraction Pain Location: Abdomen; Back Datetime: 04/25/2017 13:55 Monitor Mode: External US Datetime: 04/25/2017 13:53 Monitor Mode: External Monitor Mode: External US Datetime: 04/25/2017 13:52 Monitor Mode: External US Datetime: 04/25/2017 13:50 Monitor Mode: External US Datetime: 04/25/2017 13:48 Monitor Mode: External US Datetime: 04/25/2017 13:31 Comments: PT REPORTS A LOT OF MOVEMENT. Datetime: 04/25/2017 13:17 Monitor Mode: External US Pain Assessment Pain Scale: 6 Pain Presence: Intermittent Pain Type: Contraction Pain Location: Abdomen Datetime: 04/25/2017 13:14 Monitor Mode: External US Pain Assessment Pain Scale: 6 Pain Presence: Intermittent Pain Type: Contraction Pain Location: Abdomen Datetime: 04/25/2017 13:00 Labor Evaluation Frequency: 2-10 Monitor Mode: External Duration (sec)2399: 30-60 Quality: Mild Pattern: Normal: <= 5 Contractions in 10 Minutes Resting Tone Hagan: Relaxed Heart Rate FHR Baseline Rate: 115 Monitor Mode: External US FHR Baseline Changes: No Baseline Change Variability: Moderate 6-25 bpm Accelerations: 15X15 Decelerations: Variable Comments: Vx2 Datetime: 04/25/2017 12:00 Labor Evaluation Frequency: 2-10 Monitor Mode: External Duration (sec)2399: 50-100 Quality: Mild Pattern: Normal: <= 5 Contractions in 10 Minutes Resting Tone Hagan: Relaxed Heart Rate FHR Baseline Rate: 115 Monitor Mode: External US FHR Baseline Changes: No Baseline Change Variability: Moderate 6-25 bpm Accelerations: 15X15 Decelerations: None Datetime: 04/25/2017 11:14 Vaginal Exam Dilatation (cms): 0.0 Effacement (%): 0 Station: -3 Exam By: CKUNIYOSHI Vaginal Bleeding: None Cervix, Position: Posterior Presentation 'A': Unable to Assess Datetime: 04/25/2017 11:00 Labor Evaluation Frequency: 3-5 Monitor Mode: External Duration (sec)2399: 50-70 Quality: Mild Pattern: Normal: <= 5 Contractions in 10 Minutes Resting Tone Hagan: Relaxed Heart Rate FHR Baseline Rate: 115 Monitor Mode: External US FHR Baseline Changes: No Baseline Change Variability: Moderate 6-25 bpm Accelerations: 15X15 Decelerations: None Category: Category I Datetime: 04/25/2017 10:00 Labor Evaluation Frequency: 3-10 Monitor Mode: External Duration (sec)2399: 50-100 Quality: Mild Pattern: Normal: <= 5 Contractions in 10 Minutes Resting Tone Hagan: Relaxed Heart Rate FHR Baseline Rate: 125 Monitor Mode: External US FHR Baseline Changes: No Baseline Change Variability: Moderate 6-25 bpm Accelerations: 15X15 Decelerations: None Category: Category I Datetime: 04/25/2017 09:55 Pain Assessment Pain Scale: 8 Pain Presence: Intermittent Pain Type: Contraction Pain Location: Abdomen Datetime: 04/25/2017 09:53 Monitor Mode: External US Datetime: 04/25/2017 09:00 Labor Evaluation Frequency: 3-9 Monitor Mode: External Duration (sec)2399: 50-70 Quality: Mild Pattern: Normal: <= 5 Contractions in 10 Minutes Resting Tone Hagan: Relaxed Heart Rate FHR Baseline Rate: 115 FHR Baseline Changes: No Baseline Change Variability: Moderate 6-25 bpm Accelerations: 15X15 Decelerations: None Datetime: 04/25/2017 08:02 Vaginal Exam Dilatation (cms): 0.0 Effacement (%): 0 Station: -3 Exam By: CKUNIYOSHI Vaginal Bleeding: None Cervix, Consistency: Firm Cervix, Position: Posterior Datetime: 04/25/2017 08:00 Maternal Assessment Level of Consciousness: Fully Conscious Headache: Denies Blurred Vision: No Nausea/Vomiting: Denies RUQ Epigastric Pain: Denies Facial Edema: None Labor Evaluation Frequency: 5-11 Monitor Mode: External Duration (sec)2399: 40-50 Quality: Mild Pattern: Normal: <= 5 Contractions in 10 Minutes Resting Tone Hagan: Relaxed Heart Rate FHR Baseline Rate: 120 FHR Baseline Changes: No Baseline Change Variability: Moderate 6-25 bpm Accelerations: 10X10 Decelerations: None Datetime: 04/25/2017 07:59 Pain Assessment Pain Scale: 7 Pain Presence: Intermittent Pain Type: Contraction Pain Location: Abdomen Pain Assessment Comments: PT REPORTS PAIN IS INCREASING AGAIN; IT HAD GONE DOWN TO A 5 AFTER STADO L, BUT WAS A 10/10 WHEN SHE CAME TO THE HOSPITAL. Datetime: 04/25/2017 06:30 Stage of : OB Triage Labor Evaluation Frequency: 2-5 Monitor Mode: External Duration (sec)2399: 50-80 Quality: Moderate Pattern: Normal: <= 5 Contractions in 10 Minutes Resting Tone Hagan: Relaxed Heart Rate FHR Baseline Rate: 120 Monitor Mode: External US Variability: Moderate 6-25 bpm Accelerations: 15X15 Decelerations: None Category: Category I Pain Assessment Pain Scale: 5 Pain Presence: Intermittent Pain Type: Contraction Pain Location: Abdomen Pain Assessment Comments: Pt states shes feeling better Datetime: 04/25/2017 05:37 Stage of : OB Triage Monitor Mode: External Quality: Moderate Pattern: Normal: <= 5 Contractions in 10 Minutes Resting Tone Hagan: Relaxed Heart Rate FHR Baseline Rate: 120 Monitor Mode: External US Variability: Moderate 6-25 bpm Accelerations: 15X15 Decelerations: Variable Category: Category II Datetime: 04/25/2017 05:10 Stage of : OB Triage Datetime: 04/25/2017 05:00 Labor Evaluation Frequency: 2-4 Monitor Mode: External Quality: Moderate Pattern: Normal: <= 5 Contractions in 10 Minutes Resting Tone H[place]: Relaxed Heart Rate FHR Baseline Rate: 120 Monitor Mode: External US FHR Baseline Changes: No Baseline Change Variability: Moderate 6-25 bpm Accelerations: 15X15 Decelerations: None Category: Category I Datetime: 04/25/2017 04:30 Stage of : OB Triage Heart Rate FHR Baseline Rate: 110 Monitor Mode: External US Variability: Moderate 6-25 bpm Accelerations: 15X15 Decelerations: Variable Category: Category II Datetime: 04/25/2017 03:55 Labor Evaluation Frequency: 2-4 Monitor Mode: External Duration (sec)2399: 60-100 Quality: Moderate Pattern: Normal: <= 5 Contractions in 10 Minutes Resting Tone H[place]: Relaxed Heart Rate FHR Baseline Rate: 120 Monitor Mode: External US Variability: Moderate 6-25 bpm Accelerations: 15X15 Decelerations: None Datetime: 04/25/2017 03:45 Stage of : OB Triage Datetime: 04/25/2017 03:14 Stage of : OB Triage Heart Rate FHR Baseline Rate: 115 Monitor Mode: External US Variability: Moderate 6-25 bpm Accelerations: 15X15 Decelerations: Variable Category: Category II Vaginal Exam Dilatation (cms): 0.0 Effacement (%): 20 Station: -3 Exam By: Brittni Cool Status: Intact Vaginal Bleeding: None Cervix, Consistency: Soft Cervix, Position: Posterior Presentation 'A': Cephalic Datetime: 04/25/2017 02:30 Time of Arrival: 04/25/2017 02:09 EGA: 36.4 Arrived By: Wheelchair Arrived From: Home Chief Complaint: c/o ucs and spotting Movement: Present Contractions: Regular Time Contractions Began: 04/24/2017 12:00 Contractions: q5 Rupture of Membranes: Denies Vaginal Bleeding: Small Vaginal Discharge: Denies Recent Sexual Intercouse: Denies Abdominal Trauma: Not Applicable Patient Complaints: Contractions Time Provider Notified: 04/25/2017 04:30 Provider Notified: Dr Alvarado (Annotations: Data stored by CPN on behalf of user) Initial Plan: EFM,SVE Datetime: 04/25/2017 02:21 Stage of : OB Triage Maternal Assessment Level of Consciousness: Fully Conscious Headache: Denies Blurred Vision: No Respiratory Effort: Unlabored Nausea/Vomiting: Denies RUQ Epigastric Pain: Denies Facial Edema: None Labor Evaluation Frequency: placed Monitor Mode: External Resting Tone Hagan: Relaxed Monitor Mode: External US Comments: FHT 120 Pain Assessment Pain Scale: 8 Pain Presence: Intermittent Pain Type: Contraction Pain Location: Abdomen Datetime: 03/27/2017 15:53 EGA: 32.3 Datetime: 03/27/2017 15:50 Fall Risk Assessment Fall Score: 0 Fall Risk Score Definition: No Risk: No action required Datetime: 03/20/2017 19:14 Fall Risk Assessment Fall Score: 0 Fall Risk Score Definition: No Risk: No action required Datetime: 03/20/2017 15:14 EGA: 31.3 Datetime: 02/11/2017 13:42 Fall Risk Assessment Fall Score: 0 Fall Risk Score Definition: No Risk: No action required Datetime: 02/11/2017 13:40 EGA: 26.1 Datetime: 01/01/2017 12:10 EGA: 20.2 Fall Risk Assessment Fall Score: 0 Fall Risk Score Definition: No Risk: No action required
== END 2017-04-25 19:25 | disposition home or self-care (01) ==
LOC: OBT 02:13 → L-D 02:14 → OBT 19:25
PROVIDERS: ATTEND Obstetrics & Gynecology
DX: O62.9 Abnormality of forces of labor, unspecified (principal); Z3A.36 36 weeks gestation of pregnancy
CPT/HCPCS: 76818; 81001; J0595; J3105; J7120

== ENCOUNTER 2017-05-01 05:20 | Inpatient (IN) | payer MEDICAID ==
[~2017-05-01] VITALS: Ht 152.4 cm; Wt 60.9 kg
[2017-05-01 05:53] VITALS: Ht 152.4 cm; Wt 60.9 kg
[2017-05-01 05:54] VITALS: BP 115/66; PULSE 76; RESP 18
[2017-05-01] MEDS ORDERED: SERT25TA PO (05:56)
[2017-05-01] MEDS ORDERED: FER325 PO (05:56)
--- NOTE | 2017-05-01 09:02 | RADRPT ---
PROCEDURE: US OB biophysical profile. CLINICAL INDICATION: decreased movements, labor pain TECHNIQUE: Multiple sonographic images of the pelvis were obtained. The images were reviewed on a PACS workstation. COMPARISON: 04/25/2017 FINDINGS: There is a single viable intrauterine gestation. Cardiac activity is present with 123 beats per min brandon. There is a vertex presentation. The placenta is anterior. There is no evidence of placental abruption. There is a normal amount of amniotic fluid with an MYESHA = 16.3 cm. Biophysical profile: movement 2/2 tone 2/2. breathing 2/2 MYESHA 2/2 Total 05/05 RPTAT: AA . IMPRESSION: Normal biophysical profile. . .Mati Monte MD, MD Date Time Electronically viewed and signed by .Mati Monte MD, MD on 05/01/2017 09:02 .S/
--- NOTE | 2017-05-01 09:16 | PN ---
Triage Information Date/Time Reason for visit: Uterine contractions Weeks of Gestation 37 /Para 2/1 Diabetes: none Hypertention: none Objective Vital Signs Date Time Temp Pulse Resp B/P Pulse Ox O2 Delivery O2 Flow Rate FiO2 05/01/17 05:54 97.9 76 18 115/66 Room Air Heart Rate: 140's Contractions: 6-10 Minutes Apart Exam FT/L/P No cervical exchange consultant 4 hours Results/Medications Imaging Results BPP 05/05 Disposition: Discharge Assessment/Plan patient is advised to return to Hospital when CTXs are getting stronger,any VB any LOF any decreased movements she [place] near the Hospital CROW WILD M.D. May 01, 2017 09:15
[2017-05-01] MEDS: LACTATED RINGER'S 1,000 ML IV SCH ×3 (11:45→22:58)
[2017-05-01] MEDS ORDERED: CARBOPROST 250 MCG INJ IM PRN (12:00)
[2017-05-01] MEDS ORDERED: LIDOCAINE 1% (MPF) 30 ML INJ INJ PRN (12:00)
[2017-05-01] MEDS ORDERED: BUTORPHANOL 2 MG INJ IV PRN (12:00)
[2017-05-01] MEDS ORDERED: LACTATED RINGER'S 1,000 ML IV PRN (12:00)
[2017-05-01] MEDS ORDERED: OXYTOCIN 30 UNITS/LR 500 ML IV PRN (12:00)
[2017-05-01] MEDS ORDERED: MISOPROSTOL 200 MCG TAB PR PRN (12:00)
[2017-05-01] MEDS ORDERED: METHYLERGONOVINE 0.2 MG INJ IM PRN (12:00)
[2017-05-01] MEDS ORDERED: hydrOXYzine PAMOATE 25 MG CAP PO PRN (14:00)
[2017-05-01] MEDS: SERTRALINE 50 MG TAB PO SCH (14:00)
[2017-05-01 14:01] LABS: BASOPHIL # 0.1 10^3/ul (0.0-0.1); BASOPHILS % 0.7 % (0.0-2.0); EOSINOPHILS % 0.4 % (0.0-7.0); HEMATOCRIT 27.1 % (37.0-47.0); HEMOGLOBIN 9.2 g/dl (12.0-16.0); LYMPHOCYTES # 1.6 10^3/ul (0.8-2.9); LYMPHOCYTES % 22.6 % (15.0-51.0); MEAN CORPUSCULAR HEMOGLOBIN 28.8 pg (29.0-33.0); MEAN CORPUSCULAR HGB CONC 33.9 g/dl (32.0-37.0); MEAN CORPUSCULAR VOLUME 84.7 fl (82.0-101.0); MEAN PLATELET VOLUME 12.7 fl (7.4-10.4); MONOCYTE # 0.4 10^3/ul (0.3-0.9); MONOCYTES % 5.7 % (0.0-11.0); PLATELET COUNT 211 10^3/UL (140-415); RED CELL DISTRIBUTION WIDTH 13.6 % (11.5-14.5); WHITE BLOOD COUNT 7.1 10^3/ul (4.8-10.8)
[2017-05-01 14:10] LABS: INR 0.94; PROTIME 12.6 Sec (12.2-14.2)
[2017-05-01 14:11] LABS: PARTIAL THROMBOPLASTIN TIME 25.6 Sec (25.0-35.0)
[2017-05-01] MEDS: BUTORPHANOL 2 MG INJ IV PRN (18:24)
[2017-05-02] MEDS: LACTATED RINGER'S 1,000 ML IV SCH ×2 (06:43→14:45)
[2017-05-02] MEDS: SERTRALINE 50 MG TAB PO SCH (10:39)
[2017-05-02] MEDS: BUTORPHANOL 2 MG INJ IV PRN (13:06)
--- NOTE | 2017-05-02 15:25 | HP ---
Date/Time of Note Date/Time of Note DATE: 05/02/17 TIME: 15:23 OB - History Hx of Present Chief Complaint: contractions Estimated Due Date: May 19, 2017 : 2 Para: 1 Spontaneous : 0 Care: Good Care Ultrasounds: Normal mid trimester US Obstetrical Complications: None Medical Complications: Psychiatric (anxiety) Past Family/Social History * Past Medical, Surgical, Family and Obstetric Histories reviewed from chart. GBS Status: Negative OB Admission Exam Vital Signs Vital Signs Vital Signs Date Time Temp Pulse Resp B/P Pulse Ox O2 Delivery O2 Flow Rate FiO2 05/01/17 05:54 97.9 76 18 115/66 Room Air Physical Exam HEENT: WNL Heart: Rhythm Normal Lungs: Clear, Equal Abdomen: WNL Extremities: Normal Reflexes: Normal Cervical Dilatation: None Station: Ballotable Membranes: Intact Heart Rate: 120's Accelerations: Accelerations Present Varibility: Moderate Last 72 hours Lab Results CBC & BMP 05/01/17 12:40 OB Assessment/Plan Reason for admission: observation Plan: Expectant Management ERIN ENG MD May 02, 2017 15:25
--- NOTE | 2017-05-02 15:26 | DS ---
Date/Time of Note Date/Time of Note DATE: 05/02/17 TIME: 15:26 Obstetrical Discharge Record Final Diagnosis Final Diagnosis: Term not delivered Condition on Discharge Physical Assessment Voiding: Yes Bowel Movement: Yes Calf Tenderness: No Patient Condition: Stable ERIN ENG MD May 02, 2017 15:26
== END 2017-05-02 16:07 | disposition home or self-care (01) | DRG 780 ==
LOC: OBT 05:20 → L-D 05:25 → OBT 11:50
PROVIDERS: ADMIT Obstetrics & Gynecology; ATTEND Obstetrics & Gynecology
DX: O47.03 False labor before 37 completed weeks of gestation, third trimester (principal); F41.9 Anxiety disorder, unspecified; Z3A.31 31 weeks gestation of pregnancy
CPT/HCPCS: 76818; 85025; 85610; 85730; 86592; 86900; 86901; G0463; J0595; J7120

== ENCOUNTER 2017-05-16 03:47 | Inpatient (IN) | payer MEDICAID ==
[~2017-05-16] VITALS: Ht 152.4 cm; Wt 60.1 kg
[~2017-05-16 03:47] MED LIST changes: +ACET-141 PO; +ACET1TAB40 PO; +FER325 PO; +IBUP-1542 PO; +NITR-58 PO; +SERT25TA PO
[2017-05-16 04:12] VITALS: Ht 152.4 cm; Wt 60.1 kg
[2017-05-16 04:13] VITALS: BP 122/74; PULSE 74; RESP 18
[2017-05-16] MEDS ORDERED: LACTATED RINGER'S 1,000 ML IV PRN (04:25)
[2017-05-16] MEDS ORDERED: BUTORPHANOL 2 MG INJ IV PRN ×2 (04:30)
[2017-05-16] MEDS ORDERED: IBUPROFEN 600 MG TAB PO PRN (04:30)
[2017-05-16] MEDS ORDERED: OXYTOCIN 30 UNITS/LR 500 ML IV PRN (04:30)
[2017-05-16] MEDS ORDERED: MISOPROSTOL 200 MCG TAB PR PRN (04:30)
[2017-05-16] MEDS ORDERED: OXYTOCIN 30 UNITS/LR 500 ML IV SCH ×2 (04:30)
[2017-05-16] MEDS ORDERED: HYDROCODONE/APAP (5/325) TAB PO PRN ×2 (04:30→17:30)
[2017-05-16] MEDS ORDERED: LIDOCAINE 1% (MPF) 30 ML INJ INJ PRN (04:30)
[2017-05-16] MEDS ORDERED: METHYLERGONOVINE 0.2 MG INJ IM PRN (04:30)
[2017-05-16] MEDS ORDERED: CARBOPROST 250 MCG INJ IM PRN (04:30)
--- NOTE | 2017-05-16 04:51 | HP ---
Date/Time of Note Date/Time of Note DATE: 05/16/17 TIME: 04:43 OB - History Hx of Present Free Text/Dictation 26y.o at 39w4d with c/o uterine contractions q3min apart with intact membrane. Her couse wa unevenful except except depression which led her to be on medication 2weeks ago,placed on zoloft. Initial VE 3/70%-3 EFM revealed UC 2-3 min in strong intensity ,tracing reactive, pain level 10/ 10 admitted for expectant management. Chief Complaint: uterine contractions Estimated Due Date: May 19, 2017 : 2 Para: 1 Spontaneous : 0 Therapeutic : 0 Care: Good Care Ultrasounds: Normal mid trimester US Obstetrical Complications: None Medical Complications: None Past Family/Social History * Past Medical, Surgical, Family and Obstetric Histories reviewed from chart. Blood Type: O+ Rubella: immune RPR/VDRL: Negative GBS Status: Negative HBsAG: Negative OB Admission Exam Vital Signs Vital Signs Vital Signs Date Time Temp Pulse Resp B/P Pulse Ox O2 Delivery O2 Flow Rate FiO2 05/16/17 04:13 97.8 74 18 122/74 Room Air Physical Exam HEENT: WNL Heart: Rhythm Normal Lungs: Clear, Equal Abdomen: WNL Extremities: Normal Reflexes: Normal Cervical Dilatation: 3cm Effacement: 75% Station: -3 Membranes: Intact Amniotic Fluid: Unevaluable Heart Rate: 130's Accelerations: Accelerations Present Decelerations: No Decelerations Varibility: Moderate Contractions on Admission: < 5 Minutes Apart Intensity: Moderate OB Assessment/Plan Reason for admission: active labor Other Assessment: IUP 39w4d Plan: Expectant Management Other plan: poss augmentation MONA ARREAGA MD May 16, 2017 04:51
[2017-05-16] MEDS: LACTATED RINGER'S 1,000 ML IV SCH ×2 (05:05→09:30)
[2017-05-16 05:15] VITALS: PULSE 78
[2017-05-16 05:56] LABS: PARTIAL THROMBOPLASTIN TIME 24.9 Sec (25.0-35.0)
[2017-05-16 05:59] LABS: ABNORMAL IP MESSAGE 1; BASOPHIL # 0.1 10^3/ul (0.0-0.1); BASOPHILS % 0.7 % (0.0-2.0); EOSINOPHILS % 0.2 % (0.0-7.0); HEMATOCRIT 29.1 % (37.0-47.0); HEMOGLOBIN 9.8 g/dl (12.0-16.0); LYMPHOCYTES # 1.6 10^3/ul (0.8-2.9); LYMPHOCYTES % 18.9 % (15.0-51.0); MEAN CORPUSCULAR HEMOGLOBIN 28.2 pg (29.0-33.0); MEAN CORPUSCULAR HGB CONC 33.7 g/dl (32.0-37.0); MEAN CORPUSCULAR VOLUME 83.6 fl (82.0-101.0); MEAN PLATELET VOLUME 13.3 fl (7.4-10.4); MONOCYTE # 0.6 10^3/ul (0.3-0.9); MONOCYTES % 6.6 % (0.0-11.0); NEUTROPHILS % 72.8 % (39.0-77.0); PLATELET COUNT 220 10^3/UL (140-415); RED BLOOD COUNT 3.48 10^6/ul (4.20-5.40); RED CELL DISTRIBUTION WIDTH 13.8 % (11.5-14.5); WHITE BLOOD COUNT 8.5 10^3/ul (4.8-10.8)
[2017-05-16 06:02] LABS: INR 0.97; PROTIME 12.9 Sec (12.2-14.2)
[2017-05-16 06:17] LABS: POSITIVE DIFF @See below
[2017-05-16] MEDS ORDERED: FENTAnyl 2MCG/ML-ROPIV 0.2% 100 ML ONE (08:37)
[2017-05-16] MEDS ORDERED: NALOXONE (0.4 MG/ML) INJ IV PRN (11:30)
[2017-05-16] MEDS ORDERED: DIPHENHYDRAMINE 50 MG INJ IV PRN (11:30)
[2017-05-16] MEDS ORDERED: FENTAnyl 2MCG/ML-ROPIV 0.2% 100 ML BAG EPI SCH (11:30)
[2017-05-16] MEDS ORDERED: ONDANSETRON 4 MG INJ IV PRN ×2 (11:30→17:30)
--- NOTE | 2017-05-16 14:25 | LDN ---
Date/Time of Note Date/Time of Note DATE: 05/16/17 TIME: 14:20 Delivery Summary Normal spontaneous vaginal delivery of a baby boy from OA position shoulders delivered without any difficulty rest of the baby's body followed cord clamped after stopped pulsation placenta spontaneous expulsion inspected complete blood loss 200 cc patient assist very small right labia laceration repair with 4-0 chromic catgut Weeks of Gestation 39 weeks 4 days Placenta Delivered: Spontaneously Meconium: none Episiotomy: No Laceration repair: Small right labial laceration repaired with 4-0 chromic catgut Anesthesia type: Epidural Estimated blood loss: 200 Sponge & Needle done & correct: Yes All needle counts correct: Yes Any foreign bodies felt in the: No Problems: Infant Delivery Information Sex Infant Sex: male Apgars 1 Minute: 9 5 Minute: 9 Suctioning Nose & mouth suctioned at divya: Yes Delee suction performed: No Umbilical Cord Umbilical cord with: 3 Vessels Cord presentations: no nuchal cord Cord Blood was obtained: Yes AMAURI VALADEZ MD May 16, 2017 14:25
[2017-05-16] MEDS: OXYTOCIN 30 UNITS/LR 500 ML IV SCH ×2 (17:03→18:33)
[2017-05-16] MEDS ORDERED: ACETAMINOPHEN 325 MG TAB PO PRN (17:30)
[2017-05-16] MEDS ORDERED: DIBUCAINE 1% 30 GM OINT PR PRN (17:30)
[2017-05-16] MEDS ORDERED: LANOLIN 7 GM TUBE TOP PRN (17:30)
[2017-05-16] MEDS ORDERED: OXYCODONE/ASPIRIN (4.88/325) TAB PO PRN ×2 (17:30)
[2017-05-16] MEDS: IBUPROFEN 600 MG TAB PO SCH ×2 (18:04→23:37)
[2017-05-16 18:30] VITALS: BP 118/80; PULSE 64; RESP 16
[2017-05-16 20:00] VITALS: BP 115/65; PULSE 74; RESP 18
[2017-05-16] MEDS: FERROUS SULFATE (EC) 325 MG TAB PO SCH (21:42)
[2017-05-16] MEDS: SENNA/DOCUSATE NA (8.6MG/50MG) TAB PO SCH (21:42)
[2017-05-17 04:11] VITALS: BP 92/54; PULSE 65; RESP 19
[2017-05-17] MEDS: HYDROCODONE/APAP (5/325) TAB PO PRN ×2 (04:11→16:05)
[2017-05-17] MEDS: IBUPROFEN 600 MG TAB PO SCH ×4 (05:47→23:26)
[2017-05-17 07:30] VITALS: BP 98/61; PULSE 67; RESP 16
[2017-05-17] MEDS: PRENATAL VITAMIN PO SCH (09:12)
[2017-05-17] MEDS: SENNA/DOCUSATE NA (8.6MG/50MG) TAB PO SCH ×2 (09:12→21:46)
[2017-05-17] MEDS: FERROUS SULFATE (EC) 325 MG TAB PO SCH ×2 (09:12→21:46)
[2017-05-17] MEDS: SERTRALINE 50 MG TAB PO SCH (09:13)
[2017-05-17 10:26] LABS: BASOPHIL # 0.1 10^3/ul (0.0-0.1); BASOPHILS % 0.7 % (0.0-2.0); EOSINOPHILS # 0.1 10^3/ul (0.0-0.5); EOSINOPHILS % 0.7 % (0.0-7.0); HEMATOCRIT 27.5 % (37.0-47.0); HEMOGLOBIN 8.8 g/dl (12.0-16.0); LYMPHOCYTES # 2.5 10^3/ul (0.8-2.9); LYMPHOCYTES % 20.2 % (15.0-51.0); MEAN CORPUSCULAR HEMOGLOBIN 27.2 pg (29.0-33.0); MEAN CORPUSCULAR VOLUME 84.9 fl (82.0-101.0); MEAN PLATELET VOLUME 12.9 fl (7.4-10.4); MONOCYTE # 0.6 10^3/ul (0.3-0.9); MONOCYTES % 5.3 % (0.0-11.0); NEUTROPHILS % 72.4 % (39.0-77.0); PLATELET COUNT 195 10^3/UL (140-415); RED BLOOD COUNT 3.24 10^6/ul (4.20-5.40); RED CELL DISTRIBUTION WIDTH 14.3 % (11.5-14.5); WHITE BLOOD COUNT 12.1 10^3/ul (4.8-10.8)
--- NOTE | 2017-05-17 11:31 | PN ---
Date/Time of Note Date/Time of Note DATE: 05/17/17 TIME: 11:30 OB Subjective Subjective Subjective Post normal vaginal delivery day 1 Afebrile Vital signs are stable Abdomen soft uterus firm lochia normal Extremity normal Ambulation encouraged Laboratory Tests Test 05/17/17 09:54 White Blood Count 12.110^3/ul Red Blood Count 3.2410^6/ul Hemoglobin 8.8g/dl Hematocrit 27.5% Mean Corpuscular Volume 84.9fl Mean Corpuscular Hemoglobin 27.2pg Mean Corpuscular Hemoglobin Concent 32.0g/dl Red Cell Distribution Width 14.3% Platelet Count 67540^3/UL Mean Platelet Volume 12.9fl Neutrophils % 72.4% Lymphocytes % 20.2% Monocytes % 5.3% Eosinophils % 0.7% Basophils % 0.7% Nucleated Red Blood Cells % 0.0/100WBC Neutrophils # (Manual) 910^3/ul Lymphocytes # 2.510^3/ul Monocytes # 0.610^3/ul Eosinophils # 0.110^3/ul Basophils # 0.110^3/ul Nucleated Red Blood Cells # 0.010^3/ul Current Medications Medications (Trade) Dose Ordered Sig/Mary Route PRN Reason Start Time Stop Time Status Last Admin Dose Admin Lactated Ringer's (Lr) 1,000 ml @ 125 mls/hr Q8H IV 05/16/17 04:16 05/16/17 17:06 DC 05/16/17 09:30 Butorphanol Tartrate (Stadol) 1 mg Q2H PRN IV PAIN 05/16/17 04:30 05/16/17 17:06 DC Butorphanol Tartrate (Stadol) 2 mg Q2H PRN IV PAIN 05/16/17 04:30 05/16/17 17:06 DC 05/16/17 05:12 Lidocaine 30 ml 30 ml ONCE PRN INJ EPISIOTOMY/TEARING 05/16/17 04:30 05/16/17 17:06 DC Oxytocin/Lactated Ringer's 500 ml @ 125 mls/hr ONCE -MAY REPEAT X1 IV 05/16/17 04:30 05/16/17 17:06 DC 05/16/17 14:23 Oxytocin/Lactated Ringer's 500 ml @ 125 mls/hr ONCE IV 05/16/17 04:30 05/16/17 17:06 DC 05/16/17 14:24 Ibuprofen (Motrin) 600 mg ONCE PRN PO Mild Pain (Pain Score 1-3) 05/16/17 04:30 05/16/17 17:06 DC Acetaminophen/ Hydrocodone Bitart 2 tab 2 tab ONCE PRN PO Moderate to Severe Pain (4-10) 05/16/17 04:30 05/16/17 17:06 DC Oxytocin/Lactated Ringer's 500 ml @ 0 mls/hr ONCE PRN IV For Hemorrhage Management 05/16/17 04:30 05/16/17 17:06 DC Methylergonovine Maleate (Methergine) 0.2 mg ONCE PRN IM VAGINAL BLEEDING 05/16/17 04:30 05/16/17 17:07 DC Carboprost Tromethamine (Hemabate) 250 mcg ONCE PRN IM VAGINAL BLEEDING 05/16/17 04:30 05/16/17 17:07 DC Misoprostol 1000 mcg 1,000 mcg ONCE PRN AK VAGINAL BLEEDING 05/16/17 04:30 05/16/17 17:07 DC Lactated Ringer's 1,000 ml @ 2,000 mls/hr Q30M PRN IV PRE-EPIDURAL BOLUS 05/16/17 04:25 05/16/17 17:07 DC Fentanyl/ Ropivacaine 100 ml @ ud STK-MED ONCE .ROUTE 05/16/17 08:37 05/16/17 08:38 DC Naloxone HCl (Narcan) 0.1 mg Q2M PRN IV FOR RESP RATE 8 OR LESS 05/16/17 11:30 05/16/17 17:07 DC Diphenhydramine HCl (Benadryl) 25 mg Q6H PRN IV ITCHING 05/16/17 11:30 05/16/17 17:07 DC Ondansetron HCl (Zofran Inj) 4 mg Q6H PRN IV NAUSEA AND/OR VOMITING 05/16/17 11:30 05/16/17 17:07 DC Fentanyl/ Ropivacaine 100 ml 100 ml EPIDURAL INFUSION EPI 05/16/17 11:30 05/16/17 17:07 DC Oxytocin/Lactated Ringer's 500 ml @ 125 mls/hr Q4H IV 05/16/17 17:03 05/17/17 01:02 DC 05/16/17 18:33 Ibuprofen (Motrin) 600 mg Q6 PO 05/16/17 18:00 05/17/17 05:47 Acetaminophen (Tylenol Tab) 650 mg Q4H PRN PO PAIN LEVEL 1-5 05/16/17 17:30 Acetaminophen/ Hydrocodone Bitart ([place] (5/325)) 1 tab Q4H PRN PO PAIN LEVEL 1-5 05/16/17 17:30 Acetaminophen/ Hydrocodone Bitart ([place] (5/325)) 2 tab Q4H PRN PO PAIN LEVEL 6-10 05/16/17 17:30 05/17/17 04:11 Oxycodone/Aspirin (Percodan) 1 tab Q3H PRN PO PAIN LEVEL 1-5 05/16/17 17:30 Oxycodone/Aspirin (Percodan) 2 tab Q3H PRN PO PAIN LEVEL 6-10 05/16/17 17:30 Ondansetron HCl (Zofran Inj) 4 mg Q6H PRN IV NAUSEA AND/OR VOMITING 05/16/17 17:30 Senna/Docusate Sodium (Senokot-S) 1 tab BID PO 05/16/17 21:00 05/17/17 09:12 Witch Cristela/ Glycerin (Tucks Pads) 1 pad BEDSIDE MEDICATION PRN [place] HEMORRHOID/EPISIOTMY PAIN 05/16/17 17:30 Benzocaine (Dermoplast [place]) 1 spray BEDSIDE MEDICATION PRN TOP HEMORRHOID/EPISIOTMY PAIN 05/16/17 17:30 Dibucaine (Nupercainal) 1 applic BEDSIDE MEDICATION PRN [place] HEMORRHOID/EPISIOTMY PAIN 05/16/17 17:30 Lanolin ([id number]) 1 applic BEDSIDE MEDICATION PRN TOP BEDSIDE FOR MARTHA TO NIPPLES 05/16/17 17:30 Measles/Mumps/ Rubella Vaccine Live (Mmr Ii Vaccine) 0.5 ml ONCE ONCE SC* 05/18/17 09:00 05/18/17 09:01 Ferrous Sulfate (Ferrous Sulfate (Ec)) 325 mg BID PO 05/16/17 21:00 05/17/17 09:12 Prenat Multivit/ Ray/Iron/Folic Ac () 1 tab DAILY PO 05/17/17 09:00 05/17/17 09:12 Sertraline HCl (Zoloft) 25 mg DAILY PO 05/17/17 09:00 05/17/17 09:13 AMAURI VALADEZ MD May 17, 2017 11:31
[2017-05-17 16:00] VITALS: BP 98/59; PULSE 81; RESP 16
[2017-05-17] MEDS: WITCH HAZEL/GLYCERIN PAD PR PRN (18:05)
[2017-05-17] MEDS: BENZOCAINE 20% 56 ML SPRAY TOP PRN (18:05)
[2017-05-17 21:30] VITALS: BP 114/59; PULSE 72; RESP 18
[2017-05-18 04:00] VITALS: BP 104/53; PULSE 63; RESP 18
[2017-05-18] MEDS: IBUPROFEN 600 MG TAB PO SCH ×2 (05:44→12:23)
[2017-05-18 08:30] VITALS: BP 101/66; PULSE 70; RESP 18
[2017-05-18] MEDS ORDERED: MEASLES,MUMPS,RUBELLA VACCINE INJ SC* ONE (09:00)
[2017-05-18] MEDS: SERTRALINE 50 MG TAB PO SCH (10:40)
[2017-05-18] MEDS: FERROUS SULFATE (EC) 325 MG TAB PO SCH (10:40)
[2017-05-18] MEDS: PRENATAL VITAMIN PO SCH (10:40)
[2017-05-18] MEDS: SENNA/DOCUSATE NA (8.6MG/50MG) TAB PO SCH (10:40)
--- NOTE | 2017-05-18 13:45 | DS ---
Date/Time of Note Date/Time of Note DATE: 05/18/17 TIME: 13:45 Obstetrical Discharge Record Final Diagnosis Final Diagnosis: Term delivered Vaginal Delivery Obstetrical Delivery: Spontaneous Condition on Discharge Physical Assessment Voiding: Yes Bowel Movement: Yes Breast: Soft, non-tender Fundus: Firm Calf Tenderness: No Patient Condition: Stable ERIN ENG MD May 18, 2017 13:45
[2017-05-18] MEDS: BENZOCAINE 20% 56 ML SPRAY TOP PRN (14:16)
[2017-05-18] MEDS: WITCH HAZEL/GLYCERIN PAD PR PRN (14:16)
== END 2017-05-18 14:30 | disposition home or self-care (01) | DRG 775 ==
LOC: OBT 03:47 → L-D 03:48 → OBT 04:44 → L-D 04:44 → PP1 18:22
PROVIDERS: ADMIT Obstetrics & Gynecology; ATTEND Obstetrics & Gynecology
PROC: 10E0XZZ Delivery of Products of Conception, External Approach (ICD-10-PCS; principal; 2017-05-16)
PROC: 0UQMXZZ Repair Vulva, External Approach (ICD-10-PCS; 2017-05-16)
DX: O99.344 Other mental disorders complicating childbirth (principal); F32.9 Major depressive disorder, single episode, unspecified; O70.0 First degree perineal laceration during delivery; Z3A.39 39 weeks gestation of pregnancy; Z37.0 Single live birth
CPT/HCPCS: 62319; 85025; 85610; 85730; 86592; 86900; 86901; 87340; G0463; J0595; J2590; J3010; J7120

== ENCOUNTER 2019-06-06 17:03 | Inpatient (IN) | payer MEDICAID, OTHER ==
[~2019-06-06] VITALS: Ht 152.4 cm; Wt 50.8 kg
[~2019-06-06 17:03] MED LIST changes: -ACET-141 PO; -ACET1TAB40 PO; +CEPH-443 PO; +CIPR500T4 PO; +HYDR-3601 PO; +HYDR-4011 PO; -NITR-58 PO
[2019-06-06] MEDS ORDERED: KETOROLAC 30 MG INJ IV STA (18:00)
[2019-06-06] MEDS ORDERED: ONDANSETRON 4 MG INJ IV STA (18:00)
[2019-06-06] MEDS ORDERED: morphine 2 MG INJ IV STA ×3 (18:00→22:56)
[2019-06-06] MEDS ORDERED: SOD CHLORIDE 0.9% 1,000 ML IV STA (18:00)
[2019-06-06] MEDS ORDERED: CEFTRIAXONE 1 GM/50 ML (PMX) 50 ML IVPB ONE (19:30)
[2019-06-06] MEDS ORDERED: POTASSIUM CHLORIDE (SR) 20 MEQ TAB PO STA (21:18)
[2019-06-06] MEDS ORDERED: NACL 0.9% 3 ML SYG IV SCH (21:30)
[2019-06-06] MEDS ORDERED: ONDANSETRON 4 MG INJ IV PRN (21:30)
[2019-06-07 02:10] VITALS: Ht 152.4 cm; Wt 50.8 kg
[2019-06-07] MEDS: SOD CHLORIDE 0.9% 1,000 ML IV SCH ×4 (03:05→20:38)
[2019-06-07 03:06] VITALS: BP 118/57; PULSE 112; RESP 18
[2019-06-07] MEDS: KETOROLAC 30 MG INJ IV PRN ×4 (03:10→22:24)
[2019-06-07] MEDS ORDERED: VANCOMYCIN IV PER PHARMACY XX SCH (06:00)
[2019-06-07] MEDS ORDERED: VANCOMYCIN 1 GM 250 ML IVPB SCH (06:30)
[2019-06-07 07:39] VITALS: BP 105/58; PULSE 78; RESP 19
[2019-06-07] MEDS: CEFEPIME 1GM/50 ML (PMX) 50 ML IVPB SCH ×2 (08:54→20:37)
[2019-06-07] MEDS ORDERED: CEFTRIAXONE 1 GM/50 ML (PMX) 50 ML IVPB SCH (09:00)
[2019-06-07] MEDS ORDERED: SODIUM PHOSPHATE 20 MEQ in SOD CHLORIDE 0.9% 250 ML IVPB ONE (13:30)
[2019-06-07] MEDS: morphine 4 MG/ML VIAL IV PRN ×2 (14:17→18:54)
[2019-06-07 15:56] VITALS: BP 119/62; PULSE 91; RESP 19
[2019-06-07 19:20] VITALS: BP 118/55; PULSE 103; RESP 18
[2019-06-07] MEDS ORDERED: VANCOMYCIN 750 MG (PMX) 250 ML IVPB SCH (20:00)
[2019-06-08] MEDS: morphine 4 MG/ML VIAL IV PRN ×2 (01:51→10:31)
[2019-06-08 02:00] VITALS: BP 109/60; PULSE 102; RESP 18
[2019-06-08] MEDS: SOD CHLORIDE 0.9% 1,000 ML IV SCH ×3 (05:20→14:02)
[2019-06-08] MEDS: KETOROLAC 30 MG INJ IV PRN (06:00)
[2019-06-08 08:06] VITALS: BP 97/54; PULSE 75; RESP 18
[2019-06-08] MEDS: CEFEPIME 1GM/50 ML (PMX) 50 ML IVPB SCH (08:30)
[2019-06-08] MEDS: HYDROCODONE/APAP (5/325) TAB PO PRN ×3 (13:39→22:20)
[2019-06-08] MEDS: CIPROFLOXACIN 500 MG TAB PO SCH (18:02)
[2019-06-08 19:43] VITALS: BP 113/64; PULSE 92; RESP 18
[2019-06-08] MEDS: ACETAMINOPHEN 325 MG TAB PO PRN ×2 (21:24→22:21)
[2019-06-09 01:59] VITALS: BP 89/54; PULSE 63; RESP 16
[2019-06-09] MEDS: HYDROCODONE/APAP (5/325) TAB PO PRN ×3 (04:08→13:05)
[2019-06-09] MEDS: CIPROFLOXACIN 500 MG TAB PO SCH (05:39)
[2019-06-09 08:12] VITALS: BP 123/69; PULSE 69; RESP 17
[2019-06-09] MEDS ORDERED: FERROUS SULFATE (EC) 325 MG TAB PO SCH (09:00)
== END 2019-06-09 14:30 | disposition home or self-care (01) | DRG 872 ==
LOC: FTE 17:03 → MS1 21:22
PROVIDERS: ADMIT Internal Medicine; ATTEND Internal Medicine
DX: A41.9 Sepsis, unspecified organism (principal); N10 Acute pyelonephritis; F39 Unspecified mood [affective] disorder; D50.9 Iron deficiency anemia, unspecified
CPT/HCPCS: 36415; 74176; 76705; 80048; 80053; 81001; 81003; 81025; 83540; 83605; 83690; 83735; 84100; 85025; 87086; 96361; 96374; 96375; 96376; J0692; J0696; J1885; J2270; J2405; J3370; J7030; J7050